=== PATIENT | male | born 1995 | race Hispanic/Latino ===

== ENCOUNTER → 2017-12-27 | Outpatient (CLI) | payer OTHER ==
--- NOTE | 2017-12-27 15:23 | Diagnostic Imaging Report ---
EXAMINATION: Head CT HISTORY: Left top of the head contusion COMPARISON: None. TECHNIQUE: Multidetector axial images were obtained without contrast from the foramen magnum to the vertex . The images were reconstructed using brain and bone algorithms. Thin section brain images were reformatted into coronal and sagittal planes. Intravenous contrast: None. Motion/streaking artifact limits the evaluation of the skull base and posterior cranial fossa. FINDINGS: Parenchyma: 1. No abnormal densities. 2. No mass or hemorrhage. No CT evidence of acute territorial vascular insult. Extra-axial spaces:No abnormal density. No extra-axial fluid collections Brain volume: Normal for age. Ventricles: No hydrocephalus or displacement. Arteries: No density suggestive of thrombus. Dural sinuses: No abnormal density. Extra-axial spaces: No abnormal density. Foramen magnum: No mass, Chiari malformation, or basilar invagination. Sella: No obvious mass. Paranasal/mastoid sinuses: Imaged portions unremarkable. Skull/Scalp: No lytic or blastic lesions. Left superior vertex of skull swelling/hematoma and laceration with surgical anuj, no underlying fractures.. IMPRESSION: Left vertex region scalp hematoma and laceration without underlying fractures. Otherwise no intracranial abnormalities, particularly no hemorrhage. Signed by: Dr. Cande Pandya M.D. on 12/27/2017 3:20 PM
== END ==
LOC: EDSEX 14:21 → CT 14:21
PROVIDERS: ATTEND Family Medicine
DX: S00.03XD Contusion of scalp, subsequent encounter (principal); S01.01XD Laceration without foreign body of scalp, subsequent encounter; R11.2 Nausea with vomiting, unspecified
CPT/HCPCS: 70450